=== PATIENT | male | born 1995 | race American Indian/Alaskan Native ===

== ENCOUNTER 2018-11-30 20:51 | Emergency (ER) | payer SELFPAY ==
[2018-11-30 21:55] VITALS: BP 96/68
--- NOTE | 2018-11-30 22:04 | Emergency Department Report ---
Chief Complaint: Back Pain/Injury Stated Complaint: PELVIS AND TAILBONE PAIN - HPI History of Present Illness: 23yo BM c/o severe tailbone pain. - Exam Vital Signs: Vital Signs 11/30/18 21:53 Temperature 97.9 F Pulse Rate 61 Respiratory 18 Rate Blood Pressure 96/68 O2 Sat by Pulse 97 Oximetry MSE screening note: Focused history and physical exam performed. Due to findings the following was ordered: ED Disposition for MSE Condition: Stable
--- NOTE | 2018-11-30 22:53 | XRay Report ---
SACRUM 3 VIEWS INDICATION / CLINICAL INFORMATION: pain to 'tailbone'. COMPARISON: None available. FINDINGS: No fracture or dislocation is seen within the sacrum or coccyx. Signer Name: Chivo Diaz MD Signed: 11/30/2018 10:49 PM Workstation Name: [id number]
== END 2018-12-01 00:13 | disposition left against medical advice (07) ==
LOC: ED 20:51
DX: R10.2 Pelvic and perineal pain (principal); Z53.21 Procedure and treatment not carried out due to patient leaving prior to being seen by health care provider
CPT/HCPCS: 72220